=== PATIENT | male | born 1995 | race African-American/Black ===

== ENCOUNTER 2024-01-07 19:06 | Emergency (ER) | payer MEDICAID ==
[~2024-01-07] VITALS: Ht 172.7 cm; Wt 62.0 kg
[2024-01-07 19:17] VITALS: BP 140/87; PULSE 92; RESP 16; O2SAT 100
[2024-01-07 21:12] LABS: Hematocrit 45.3 % (41.0-53.0); Hemoglobin 15.1 g/dL (13.5-17.5); Mean Corpuscular Hemoglobin 28.5 pg (28.0-32.0); Mean Corpuscular Hgb Conc. 33.3 g/dL (32.0-36.0); Mean Corpuscular Volume 85.7 fL (80.0-100.0); Platelet Count (auto) 284 10^3/uL (140-450); Red Blood Cells 5.29 10^6/uL (4.5-5.90); Red Cell Distribution Width 12.7 % (11.8-14.3); White Blood Cell 7.5 10^3/uL (4.4-10.8)
[2024-01-07 21:17] LABS: Alanine Aminotransferase 11 U/L (7-40); Albumin 4.7 g/dL (3.2-4.8); Alkaline Phosphatase 53 U/L (46-116); Anion Gap 7 (5-15); Aspartate Aminotransferase 17 U/L (13-40); BUN/Creatinine Ratio 8.4 (10.0-20.0); Blood Urea Nitrogen 9 mg/dL (9-23); Calcium 9.8 mg/dL (8.7-10.4); Carbon Dioxide 27 mmol/L (20-31); Chloride 107 mmol/L (98-107); Glucose 80 mg/dL (74-106); Potassium 3.8 mmol/L (3.5-5.1); Sodium 141 mmol/L (136-145)
[2024-01-07 21:18] LABS: Bilirubin, Total 0.7 mg/dL (0.2-1.0); Total Protein 7.8 g/dL (5.7-8.2)
[2024-01-07 21:27] LABS: Band Neutrophils % (manual) 0; Basophils % (manual) 0 (0.0-2.0); Blast Cells 0; Metamyelocytes % 0; Myelocytes % 0; Promyelocytes % 0; Reactive Lymphocytes 0
[2024-01-07 22:04] LABS: Eosinophils % (manual) 4 (0-7); Lymphocytes % (manual) 55 (10.0-50.0); Monocytes % (manual) 10 (0-12); Platelet Estimate Adequate
[2024-01-07 22:05] LABS: RBC Morphology Normal
[2024-01-07 22:08] LABS: Urine Bacteria None Seen /hpf (None Seen); Urine WBC None Seen /hpf (0 - 3)
[2024-01-07 22:23] LABS: Urine Blood Negative /uL (Negative); Urine Clarity Clear (Clear); Urine Color Light-Yellow (Yellow); Urine Protein, UAD Negative (Negative); Urine Urobilinogen Normal (Negative); Urine pH 6.5 (5.0-9.0)
[2024-01-07] MEDS ORDERED: LOPE1TAB9 PO (22:55)
== END 2024-01-08 00:01 | disposition home or self-care (01) ==
LOC: ER 19:06
DX: R19.7 Diarrhea, unspecified (principal); Z88.8 Allergy status to other drugs, medicaments and biological substances
CPT/HCPCS: 36415; 80053; 81001; 85007; 85027

== ENCOUNTER 2024-04-18 13:05 | Emergency (ER) | payer MEDICAID ==
[~2024-04-18] VITALS: Ht 172.7 cm; Wt 66.8 kg
[~2024-04-18 13:05] MED LIST: LOPE1TAB9 PO
--- NOTE | 2024-04-18 13:27 | ED.PDOC ---
History of Present Illness HPI Comments 29Y M with PMHx HIV presents to ED for chief complaint medication refill. Pt is currently taking Symtuza 800mg/150mg/200mg/10mg. Pt states his levels are being monitored and he is being f/u by Dr. Medeiros who emphasized to the pt not to miss any doses. Pt denies all symptoms and feels well. Time Seen by MD: 13:17 Primary Care Provider: TAYLA Reviewed Notes: Nurses Notes, Medications, Allergies Allergies: Coded Allergies: Ceftriaxone (Verified Allergy, Unknown, 01/07/24) Home Meds Active Scripts Loperamide HCl (Loperamide HCl) 2 Mg Tab, 2 MG PO QID PRN, #12 TAB Prov:CLARKJASON 01/07/24 Information Source: Patient Mode of Arrival: Ambulatory Severity: None Medication Refill: Ran out of Medication, For: Other Past Medical History PAST MEDICAL HISTORY: HIV Surgical History: Denies all surgeries Family History Family History: Unknown Social History Smoker: Non-Smoker Alcohol: Denies ETOH Use Drugs: Denies Drug Use Lives In: Home Constitutional: denies: chills, diaphoresis, fatigue, fever, malaise, sweats, weakness, others EENTM: denies: blurred vision, double vision, ear bleeding, ear discharge, ear drainage, ear pain, ear ringing, eye pain, eye redness, hearing loss, mouth pain, mouth swelling, nasal discharge, nose bleeding, nose congestion, nose p ain, photophobia, tearing, throat pain, throat swelling, voice changes, others Respiratory: denies: cough, hemoptysis, orthopnea, SOB at rest, shortness of breath, SOB with excertion, stridor, wheezing, others Cardiovascular: denies: chest pain, dizzy spells, diaphoresis, Dyspnea on exertion, edema, irregular heart beat, left arm pain, lightheadedness, palpitations, PND, syncope, others Gastrointestinal: denies: abdomen distended, abdominal pain, blood streaked bowels, constipated, diarrhea, dysphagia, difficulty swallowing, hematemesis, melena, nausea, poor appetite, poor fluid intake, rectal bleeding, rectal pain, vomiting, others Genitourinary: denies: burning, dysuria, flank pain, frequency, hematuria, incontinence, penile discharge, penile sore, pain, testicle pain, testicle swelling, urgency, others Neurological: denies: dizziness, fainting, headache, left sided numbness, left sided weakness, numbness, paresthesia, pre-existing deficit, right sided numbness, right sided weakness, seizure, speech problems, tingling, tremors, weakness, others Musculoskeletal: denies: back pain, gout, joint pain, joint swelling, muscle pain, muscle stiffness, neck pain, others Integumetry: denies: bruises, change in color, change in hair/nails, dryness, laceration, lesions, lumps, rash, wounds, others Allergic/Immunocompromised: denies: Difficulty Healing, Frequent Infections, Hives, Itching, others Hematologic/Lymphatic: denies: anemia, blood clots, easy bleeding, easy bruising, swollen glands, others Endocrine: denies: excessive hunger, excessive sweating, excessive thirst, excessive urination, flushing, intolerance to cold, intolerance to heat, unexplained weight gain, unexplained weight loss, others Psychiatric: denies: anxiety, bipolar disorder, depression, hopeless, panic disorder, schizophrenia, sleepless, suicidal, others All Other Systems: Reviewed and Negative Physical Exam General Appearance: No Apparent Distress, Normal HEENT: Normal ENT Inspection, Pharynx Normal, TMs Normal Neck: Full Range of Motion, Non-Tender, Normal, Normal Inspection Respiratory: Chest Non-Tender, Lungs Clear, No Accessory Muscle Use, No Respiratory Distress, Normal Breath Sounds Cardiovascular: No Edema, No JVD, No Murmur, No Gallop, Normal Peripheral Pulses, Regular Rate/Rhythm Breast Exam: Deferred Gastrointestinal: No Organomegaly, Non Tender, No Pulsatile Mass, Normal Bowel Sounds, Soft Genitalia: Deferred Pelvic: Deferred Rectal: Deferred Extremities: No calf tenderness, Normal capillary refill, Normal inspection, Normal range of motion, Non-tender, No pedal edema Musculoskeletal : Apperance: Normal Neurologic: Alert, older adult social work specialist II-XII nml as Tested, No Motor Deficits, Normal Affect, Normal Mood, No Sensory Deficits Cerebellar Function: Normal Reflexes: Normal Skin: Dry, Normal Color, Warm Lymphatic: No Adenopathy Was a procedure done? Was a procedure done?: No Differential Dx Considerations may include: medication refill X-Ray, Labs, Meds, VS Vital Signs Date Time Temp Pulse Resp B/P (MAP) Pulse Ox O2 Delivery O2 Flow Rate FiO2 04/18/24 13:32 81 16 99 Room Air 04/18/24 13:32 98.1 81 16 137/84 (101) 99 98.1 04/18/24 13:24 98.1 81 16 137/84 (101) 99 Time of 1ST Reevaluation: 13:25 Reevaluation 1ST: Unchanged Patient Education/Counseling: Diagnosis, Treatment Family Education/Counseling: No Family Present Additional Information I reviewed the following notes from patient's past medical encounters: [facility] 01/07/2024, 10/30/2013 The following tests were ordered, and results were reviewed by me: None Additional Information was gathered from interviewing the following independent historians: None I reviewed and agreed with the following test results read by other providers: None I discussed treatment and results with medical personnel. Departure 1 Departure Time of Disposition: 13:57 Impression: Primary Impression: HIV (human immunodeficiency virus infection) Qualified Codes: Z21 - Asymptomatic human immunodeficiency virus [hiv] infection status Additional Impression: Medication refill Disposition: HOME / SELF CARE / HOMELESS Condition: Good e-Prescriptions [id number] (Symtuza [id number] mg) 1 Tab Tab 1 TAB PO DAILY for 30 Days, #30 TAB Prov: DUNCAN CHIN MD 04/18/24 Discharged With: Self Critical Care Note Critical Care Time?: No Stability Stability form required: No Heart Score Heart Score: Heart Score Response (Comments) Value History N/A 0 EKG N/A 0 Age N/A 0 Risk Factors N/A 0 Troponin N/A 0 Total 0 I personally scribed for DUNCAN CHIN MD ([email or web address]) on 04/18/24 at 13:27. Electronically submitted by Armida Foley ([email or web address]). DUNCAN CHIN MD Apr 18, 2024 13:27
[2024-04-18 13:32] VITALS: BP 137/84; PULSE 81; RESP 16; TEMP 98.1; O2SAT 99
[2024-04-18] MEDS ORDERED: DARU1TAB3 PO (13:57)
== END 2024-04-18 14:02 | disposition home or self-care (01) ==
LOC: ER 13:05
DX: B99.8 Other infectious disease (principal); Z76.0 Encounter for issue of repeat prescription; Z88.1 Allergy status to other antibiotic agents